=== PATIENT | female | born 1975 | race Caucasian/White ===

== ENCOUNTER → 2020-04-20 17:18 | Outpatient (CLI) | payer SELFPAY ==
--- NOTE | 2020-04-20 16:00 | EMB_PTH ---
PATIENT: ALMAS RABAGO LOC: [facility] U#:[id number] AGE/SX: 50/F ROOM: RE04/20/[address]: Dr. Cuong Jones MD : 1975 BED: DIS: SPEC #: [id number] RECD: 04/20/20 17:18 STATUS: HERBERT PRISCILLA #: [id number] BHAKTI: 04/20/20 16:[address]: Cuong Jones DEPT: SURGICAL PATHOLOGY RECD BY: Atul Morgan Tissues: Endometrium, NOS Procedures: Surgery Specimen Level IV HEADER OPERATION: Endometrial biopsy PRE-OP DIAGNOSIS: N92.0 TISSUE SUBMITTED: Endometrial biopsy MICROSCOPIC DIAGNOSIS Endometrial biopsy: Early secretory endometrium. CATRACHITA:marleni 04/22/20 MICROSCOPIC DESCRIPTION Slides are reviewed. GROSS DESCRIPTION Received in fixative is one container labeled with the patient's name and designated EM biopsy. The specimen consists of multiple fragments of hemorrhagic soft tissue that in aggregate measure 2.5 x 1.5 x 0.1 cm. The specimen is totally submitted in one cassette. / SJ:rg 04/21/20 TC:4 CPT: 26803
[2020-04-25 22:21] LABS: HPV Reflexed? NOT INDICATED
== END ==
PROVIDERS: Referring Provider Obstetrics & Gynecology; Visit Provider Obstetrics & Gynecology
DX: Z12.4 Encounter for screening for malignant neoplasm of cervix (principal)
CPT/HCPCS: 88175; 88305; G0145

== ENCOUNTER 2020-07-11 05:26 | Day surgery (SDC) | payer SELFPAY, OTHER ==
[2020-07-06 11:10] LABS: Hematocrit 37.1 % (37-47); Hemoglobin 12.5 g/dL (12.0-15.0); Mean Corp Hgb Conc 33.7 g/dL (32-36); Mean Corpuscular Hgb 30.7 pg (27.0-32.0); Mean Corpuscular Volume 91.2 fL (81-99); Mean Platelet Vol. 9.3 fl (6.2-12.0); Platelet Count 257 K/mm3 (150-450); RBC Distribution Width CV 12.4 % (11.6-14.6); RBC Distribution Width SD 41.2 fl (35.1-43.9); Red Blood Count 4.07 M/mm3 (4.2-5.4)
[2020-07-06 11:26] LABS: International Normalized Ratio 1.1; Partial Thromboplast Time 33.7 Seconds (24.1-36.2); Prothrombin Time (Protime)PT. 13.3 SECONDS (11.7-14.9)
[2020-07-06 11:40] LABS: Creatinine, Serum 0.62 mg/dL (0.55-1.02); EST Glomerular Filtration Rate 111 mL/min (>60); Est Glom Filt Rate - Afr Amer 134 mL/min (>60)
[2020-07-11] VITALS (11 sets, daily range): BP systolic 120–134; BP diastolic 63–74; PULSE 56–67; RESP 16–18; TEMP 36.3–37.2; O2SAT 96–100; BMI 23.8
--- NOTE | 2020-07-11 | HYST_PTH ---
PATIENT: ALMAS RABAGO LOC: [facility] [place][id number] AGE/SX: 45/F ROOM: RE07/11/[address]: Dr. Cuong Jones MD : 1975 BED: DIS: 07/12/2020 SPEC #: [id number] RECD: 07/11/20 13:35 STATUS: HERBERT PRISCILLA #: [id number] BHAKTI: 07/11/20 00:[address]: Cuong Jones DEPT: SURGICAL PATHOLOGY RECD BY: Ean Galeana ENTERED: 07/11/20 13:35 SP TYPE: HYSTERECT OTHR DR: Dr. Cuong Lo MD Tissues: Uterus, NOS Procedures: Surgery Specimen Level V HEADER OPERATION: Lap robotic hysterectomy, bilateral salpingectomy PRE-OP DIAGNOSIS: Submucous leiomyoma uterus TISSUE SUBMITTED: Uterus and bilateral fallopian tubes MICROSCOPIC DIAGNOSIS Uterus, hysterectomy: Cervix - mild chronic inflammation and nabothian cysts. Endometrium - secretory endometrium. Myometrium - leiomyomas and focal adenomyosis. Right and left fallopian tubes - no pathologic change. AM:marleni 07/13/20 MICROSCOPIC DESCRIPTION Slides are reviewed. GROSS DESCRIPTION Received in fixative is one container labeled with the patient's name and designated uterus. The specimen consists of a uterus received in ten fragments ranging in size from 2 cm to 13 cm and in aggregate weighing 392 gm. The cervical segment measures 5 cm in length. The ectocervix is grossly unremarkable. The visible endocervical canal measures 4 cm in length and is free of mass lesions. Due to fragmentation, a distinct endometrial cavity is not identified. The visible endometrial cavity measures 3.5 cm in greatest dimension. The endometrium is reddish-sharp, velvety and glistening and measures up to 0.2 cm in thickness. The myometrium measures 2.5 cm in average thickness and contains multiple spherical, rubbery nodules resembling leiomyomas ranging in size from 0.8 cm to 5 cm. Two fallopian tubes are attached to the largest fragment and both contain Filshie clips that are intact. The average length of the fallopian tubes is 10 cm in length and 0.6 cm in average diameter. [employer] sections are submitted in 12 cassettes as follows: 1 & 2 - cervix, 3-7 - endometrium/myometrium, 8 - largest myometrial mass, 9 - second largest myometrial mass, 10 - third largest myometrial mass, 11 - one fallopian tube, 12 - the other fallopian tube. / AM:marleni 07/12/20 TC:1 CPT: 47498
[2020-07-11] MEDS: Lactated Ringers 1,000 ML 100 ML IV ×2 (06:22→10:59)
[2020-07-11] MEDS: Lactated Ringers 1,000 ML 75 ML IV (06:24)
[2020-07-11] MEDS: Cefotetan 2 GM in 0.9% NS 100 ML IV (07:21)
[2020-07-11] MEDS: Ropivacaine 0.5% 30 ML Vial (08:00)
--- NOTE | 2020-07-11 10:25 | OP.PCM_ITS ---
Report of Operation Date of Procedure: 07/11/20 Pre-Operative Diagnosis: Symptomatic Uterine Fibroids Post-Operative Diagnosis: Symptomatic Uterine Fibroids Surgery/Procedure Performed:: Robotic Assisted Vaginal Hysterectomy and Bilateral Salpingectomy Description of Surgical Findings:: 9 cm uterus with a 9 cm fundal fibroid present. Evidence of prior tubal ligation with Filshie clips. Normal-appearing fallopian tubes and ovaries. compressor assembler: Jacob Quarles Type of Anesthesia:: General - Endotracheal Anesthesiologist: Hugh Hamlin Specimen's removed: Uterus and bilateral fallopian tubes Drains: Pineda to straight drain Estimated Blood Loss (mL): 50 cc Fluids Replaced: Crystalloid Description of Procedure: Surgeon: Cuong Jones MD, FACOG Indication: This is a 45 year old patient who has been having problems with symptomatic uterine fibroids. Conservative measures have not been helpful. The patient has been counseled regarding the risks, benefits and alternatives of this procedure including the possibility of bleeding, infection, and injury to surrounding structures such as bowel bladder and all questions were answered. She understands that if BSO is needed that she will need to be on HRT for an indefinite period of time. Procedure: Pt taken to the operating room where, after induction of general anesthesia, the patient was prepped and draped in the usual sterile fashion and placed on a non-slip Huggy-u-vac device. Trendelenburg test was satisfactory. Bladder was drained of urine with a Pineda catheter which was left in place. Anterior cervix grasped and cervix was dilated to about 3-4 mm. Uterus sounded to 9 cms. 0-Vicryl suture was placed at the 3:00 and 9:00 position of the cervix. A small Advincula Access Control Officer Uterine Manipulator was then placed in the uterus and attention was turned to the laparoscopic portion of the procedure. Ropivocaine 0.5% was injected approximately 2-3 cm superior to the umbilicus and an 8 mm robotic camera port was introduced directly with intraperitoneal placem ent confirmed with CO2 insufflation. 8 mm robotic side ports were introduced under direct visualization approximately 11 cm lateral and 2 cm inferior to the umbilical port. A 5 mm left upper quadrant port was introduced and airseal insufflation with CO2 was started. The above findings were noted. Robot was docked without difficulty and attention turned to the robotic portion of the procedure. Approximately 30 cc of Ropivicaine was used. Bilateral mesosalpinx were ligated with 35 elias bipolar coagulation to the level of the round ligament. The posterior aspect of the cervix was identified and then opened for about 1 cm using 25 watt monopolar cautery identifying the uterine manipulating device which had been placed vaginally. Bladder flap was opened and divided to the level of the round ligaments using monopolar cautery. Progressive bites were then ligated on each side of the cervix with 45 and then 35 elias bipolar cautery to the uterine arteries. The anterior vaginal mucosa w as entered and cervix circumscribed with monopolar cautery. Uterus and attached tubes were removed through the vagina by morcellating the uterus and the fibroid from the vagina as it was not possible to bring it through the vaginal cuff intact. Vaginal cuff was closed first with 0-Vicryl Shanta stitches placed at each angle followed by closure of the mid-cuff with 0-Monocryl V-lock suture in two layers. Pelvis was copiously irrigated with saline and the right and left ureter was noted to peristalse. Robot was undocked and trocars were removed with as much gas as possible. Incisions were closed with 4-0 Monocryl subcuticular sutures and incisions covered with steri-strips. The patient tolerated the procedure well and was taken to the recovery room in satisfactory condition. Sponge, instruments and needle counts were all correct. There were no apparent complications of the surgery. Cefotan 2 gms IV was given prior to the procedure. Grafts/Implants Used: None - Complications None - Admit VTE Documentation VTE Present on Admission: Yes VTE Mechan Device Prophylaxis: SCD's VTE Pharm Prophylaxis ordered?: Yes
--- NOTE | 2020-07-11 10:31 | PCM.DC.VHY ---
Discharge Diet: No Restrictions Discharge Activity: Return to Normal Activity, May Not Drive - while taking narcotic pain medications., May Shower, May Take a Tub Bath May resume sexual activity in: 6-8 weeks Call your doctor if your incision/area has: Continuous Slow Oozing, Sudden Increased Bleeding, Increased Pain/ Swelling, Increased Redness, Foul Smelling Discharge Call your doctor if you observe: Fever of 101 or Higher, Inability to urinate, Inability to have a bowel movement, Using more than one pad per hour Allergies/Adverse Reactions: Allergies No Known Allergies Allergy (Verified 07/11/20 05:55) Medications to take at Discharge Docusate Sodium [Colace] 100 mg PO BID PRN PRN #60 cap 07/11/20 Oxycodone [Oxyir] 5 mg PO Q6H PRN PRN 7 Days #14 tablet 07/11/20 The following prescriptions were given: Docusate Sodium [Colace] 100 mg PO BID PRN PRN #60 cap PRN Reason: Constipation Transmission Status: Pending to [facility] Oxycodone [Oxyir] 5 mg PO Q6H PRN PRN 7 Days #14 tablet PRN Reason: Pain Score 6-10/10 Transmission Status: Sent to [facility] Primary Care Physician: Cuong Lo MD [Primary Care Provider] - Test Results: Test results from this visit will be discussed in further detail at your follow-up appointment, if applicable. Please Follow Up With: Cuong Jones MD When: 2-3 weeks
[2020-07-11] MEDS: Dextrose 5%-Lactated Ringers 1,000 ML 150 ML IV ×2 (12:08→18:24)
[2020-07-11] MEDS: Ketorolac 30 MG/ML Syringe IV ×2 (13:29→20:28)
[2020-07-11] MEDS: 0.9% Saline Lock 10 ML Syringe IV ×2 (13:30→20:28)
--- NOTE | 2020-07-11 14:56 | NURSING ---
PT BLADDER SCANNED FOR 137ML. PT STATES FEELS URGE TO VOID. ASSISTED PT TO STAND @ BS FOR CONCEPCION TO DRAIN. PT STATES FELT RELIEF.
[2020-07-11] MEDS: oxyCODONE 5 MG Tablet PO (16:06)
[2020-07-11] MEDS: Enoxaparin 30 MG/0.3 ML Syringe SC (18:24)
[2020-07-12 00:08] VITALS: BP 105/62; PULSE 72; RESP 14; TEMP 36.6; O2SAT 99
[2020-07-12] MEDS: Ketorolac 30 MG/ML Syringe IV ×2 (01:44→08:38)
[2020-07-12] MEDS: 0.9% Saline Lock 10 ML Syringe IV ×2 (01:45→08:38)
[2020-07-12 04:00] VITALS: BP 114/69; PULSE 70; RESP 16; TEMP 36.6; O2SAT 99
[2020-07-12 06:53] LABS: Hematocrit 29.1 % (37-47); Hemoglobin 9.3 g/dL (12.0-15.0); Mean Corpuscular Hgb 30.1 pg (27.0-32.0); Mean Corpuscular Volume 94.2 fL (81-99); Mean Platelet Vol. 9.6 fl (6.2-12.0); Platelet Count 179 K/mm3 (150-450); RBC Distribution Width CV 12.9 % (11.6-14.6); RBC Distribution Width SD 44.1 fl (35.1-43.9); Red Blood Count 3.09 M/mm3 (4.2-5.4); White Blood Count 6.8 K/mm3 (4.4-11.0)
[2020-07-12 07:48] LABS: Creatinine, Serum 0.61 mg/dL (0.55-1.02); EST Glomerular Filtration Rate 112 mL/min (>60); Est Glom Filt Rate - Afr Amer 135 mL/min (>60); Estimated Creatinine Clearance 96.34 ml/min
[2020-07-12 08:00] VITALS: BP 109/65; PULSE 82; RESP 16; TEMP 36.3; O2SAT 99
--- NOTE | 2020-07-12 08:28 | PCM.PN.OB ---
Subjective: Patient without complaints. Tolerating diet well. Positive flatus and able to void on own with Pineda out. Objective: Wounds are clean, dry, intact. Good urine output. Hemoglobin and creatinine okay. - Physical Exam Vitals/I&O's: Vital Signs Temp Pulse Resp BP Pulse Ox 97.8 F 70 16 114/69 99 07/12/20 04:00 07/12/20 04:00 07/12/20 04:00 07/12/20 04:00 07/12/20 04:00 Oxygen Flow Rate (L/min) 5 Oxygen Delivery Method Room Air Weight: 134 lb 4.184 oz Body Mass Index (BMI) 23.8 Intake and Output for Last 24 Hours 07/10/20 07/11/20 07/12/20 23:59 23:59 23:59 Intake Total 3731.67 / 4531.67 2200 / 2200 Output Total 2000 / 2400 500 / 500 Balance 1731.67 / 2131.67 1700 / 1700 Laboratory Results 07/12/20 06:12: WBC 6.8, RBC 3.09 L, Hgb 9.3 L, Hct 29.1 L, MCV 94.2, MCH 30.1, MCHC 32.0, RDW Std Deviation 44.1 H, RDW Coeff of Mariam 12.9, Plt Count 179, MPV 9.6 07/12/20 06:12: Creatinine 0.61, Estim Creat Clear Calc 96.34, Est GFR (MDRD) Af Amer 135, Est GFR (MDRD) Non-Af 112 Current Medications Acetaminophen (Tylenol) 1,000 mg PO Q8H PRN PRN PRN Reason: Pain Score 1-3/10 or Fever Docusate Sodium (Colace) 100 mg PO BID PRN PRN PRN Reason: Constipation Hydromorphone HCl (Dilaudid Inj) 0.5 mg IV Q3H PRN PRN PRN Reason: Pain Score 4-10/10 Ketorolac Tromethamine (Toradol (Bkc)) 30 mg IV Q6H PHAM Stop: 07/16/20 14:01 Last Admin: 07/12/20 01:44 Dose: 30 mg Documented by: Ondansetron HCl (Zofran) 4 mg IV Q4H PRN PRN PRN Reason: NAUSEA Oxycodone HCl (Oxyir) 5 mg PO Q4H PRN PRN PRN Reason: Pain Score 4-10/10 Last Admin: 07/11/20 16:06 Dose: 5 mg Documented by: Sodium Chloride () 10 - 40 ml IV UD PRN PRN Reason: SALINE FLUSH Last Admin: 07/12/20 01:45 Dose: 10 ml Documented by: Medical Necessity - Tobacco Use Smoking Status: Never smoker Tobacco Use: Non-smoker Assessment/Plan Doing well postoperative day #1 status post robotic assisted vaginal hysterectomy and bilateral salpingectomy. Will discharge to home with routine instructions.
[2020-07-12 12:25] VITALS: BP 114/74; PULSE 64; RESP 18; TEMP 36.7; O2SAT 96
--- NOTE | 2020-07-16 18:11 | PCM.HP.BLA ---
History and Physical Date of Admission: 07/11/20 Surgical History and Physical Anayeli Morales, a 45 year old female 4 0 0 0 4, presents for RAVH/BS on July 11, 2020 at 7:30. -- Symptomatic Fibroid Uterus -- CT Scan show 7.3 cm low likely fibroid at superior right lateral aspect of the uterus. Surgery due to fibroids and menorrhagia. Discussed again the possibility of laparotomy given size of fibroids. Fibroid Uterus which began CT Scan done 03-16-20. Anayeli Abraham characterizes the quality pain,lump, pressure. Severity is moderate and very concerned. Additional comments are: Referred by Zeny Rose NP.; Additional comments are: severe low back pain and worsening. Ultrasound: UTERUS: 13.3 x 9 x 9.9cm. Three fibroids seen. submucous 1) 2.4 x 3.2 x 2.9cm 2) 2 x 1.7 x 1.7cm 3) pedunculated 6.2 x 8.1 x 8.3cm. MEDICATIONS HISTORY: ALLERGIES: No Known Allergies Infections - Chicken pox Illnesses - no serious past illnesses Accidents - None Hospitalizations - see surgery Review of Systems: GENERAL - Denies fever, or chills SKIN - Denies skin changes EYES - Denies visual changes EARS - Denies difficulty hearing NOSE - Denies nasal congestion or bleeding MOUTH - Denies sore throat or difficulty swallowing NECK - Denies pain or swelling RESPIRATORY - Denies shortness of breath or wheezing CARDIOVASCULAR - Denies palpitations or chest pain GASTROINTESTINAL - Denies nausea, vomiting, diarrhea, constipation GENITOURINARY - Denies dysuria, frequency of urination, incontinence of urine MUSCULOSKELETAL - Denies joint or muscle pain NEUROLOGICAL - Denies localized numbness or weakness PSYCHIATRIC - Denies depression or anxiety ENDOCRINE - Denies heat or cold intolerance, weight loss or gain HEMATO-IMMUNOLOGIC - Denies excesive bleeding with cuts SOCIAL HISTORY: Alcohol Use - None Smoking - Never Diet - no special diet Lifestyle - moderate stress lifestyle and Exercise - active work Seat Belt Use - most of the time Employer - [employer] Illicit Drug Use - None Sexual Activity - Spouse-Sig Other Name - Ronn Spouse-Sig Other Occupation - [employer] Children Name(s) - 4 children Control - Prior Tubal FAMILY HISTORY: MENSTRUAL HISTORY: LMP Known?- DefiniteAmount/Duration - 3 days, Regularity - Regular, Frequency - monthly days, LMP - 06/20/20, Age Onset Menarche - 13 PAST PREGNANCIES: Total Pregnancies - 4; Full Term Pregnancies - 4; Premature - 0; Abortions, Induced - 0; Abortions, Spontaneous - 0; Ectopics - 0; Multiple Births - 0; Living Children - 4 SURGICAL HISTORY: 1. 2001 (L) Arm Lumpectomy 2. 1997 (R) Leg Lumpectomy 3. 08/17/2005 and Tubal ; Dr. Santoyo . 2017 Hemorroidectomy ; Brian Dobbins PHYSICAL EXAM BP- 110/70 Sitting, Right arm, regular cuff Temp- 97.9 Weight- 133.71099 lbs Height- 63.00 inch BMI:23.75 CONSTITUTIONAL - NAD, well nourished, and well developed SKIN - No rash, lesions, or ulcers HEENT - Normocephalic, PERRLA, EOMI NECK - No nodes, no nuchal rigidity and thyroid normal size and texture LYMPH NODES - Palpation of lymph nodes in neck and groins within normal limits LUNGS - CTA x2 without wheezes, crackles or rales CARDIAC - Regular rate and rhythm without rubs, murmurs, or gallops ABDOMEN - Without hepatosplenomegaly, distention, masses, rebound, or guarding; normal bowel sounds; no hernias EXTREMITIES - No edema or calf tenderness NEUROLOGICAL - Cranial nerves II-XII grossly intact PSYCHIATRIC - A and O to time, place, person, mood and affect External Genitial Vagina - non-tender without lesions Urethra/Urethral Meatus - non-tender Bladder - non-tender Vagina - vaginal brownlee are pink and moist without loss of rugae and no evidence of atropy Cervix - without cervical motion tenderness and has normal size and features without evident lesions Uterus - 14 cm likely fibroid uterus Adnexa - clear without massess or tenderness ASSESSMENT/PLAN: 1. Submucous Leiomyoma Uterus Very symptomatic and menorrhagia. EMBx ok. Pelvic u/s confirms large fibroids. Discussed options for treatment and pt desires we proceed with hysterectomy. Plan RAVH/BS. Discussed RBAs including possibility of needing to proceed with laparotomy.
== END 2020-07-12 12:58 | disposition home or self-care (01) ==
LOC: SDC 05:27 → AC 05:27 → MS3 07:57
PROVIDERS: Anesthesiology; PCP Family Medicine; Referring Provider Obstetrics & Gynecology; Visit Provider Obstetrics & Gynecology
PROC: 0UT90ZZ Resection of Uterus, Open Approach (ICD-10-PCS; CPT 58573; principal; 2020-07-11 07:10)
DX: D25.0 Submucous leiomyoma of uterus (principal); N80.0 Endometriosis of uterus; Z11.59 Encounter for screening for other viral diseases
CPT/HCPCS: 00840; 58573; S2900; 36415; 82565; 85027; 85610; 85730; 86850; 86900; 86901; 87635; 88307; 99251; C9803; J7120; A4216; G0463; J2405; U0003